=== PATIENT | female | born 1995 | race Caucasian/White ===

== ENCOUNTER 2017-05-06 12:40 | Emergency (ER) | payer OTHER ==
[~2017-05-06] VITALS: Wt 100.7 kg
[~2017-05-06 12:40] MED LIST: BUTA1CAP38 PO; CEPH-443 PO; IBUP-1542 PO; ONDA8TAB14 PO
--- NOTE | 2017-05-06 13:22 | ERD ---
ER Documentation Chief Complaint Date/Time DATE: 05/06/17 TIME: 13:20 Chief Complaint SMALL CUTS ON 3RD AND 4TH DIGIT ON RIGHT HAND HPI 22-year-old female who is right-hand dominant comes in with superficial lacerations to her third and fourth digits from a trip and fall into a glass mirror this afternoon. She has localized pain, achy, worse with movement. She does not have any foreign body sensation. Patient does not recall her last tetanus shot. ROS All systems reviewed and are negative except as per history of present illness. Medications Home Meds Active Scripts Cephalexin* (Keflex*) 500 Mg Capsule, 500 MG PO QID for 5 Days, CAP Prov:LORENA COHEN MD 11/14/16 Ibuprofen* (Motrin*) 600 Mg Tab, 600 MG PO Q6, #20 TAB Prov:LORENA COHEN MD 11/14/16 Ondansetron (Ondansetron Odt) 8 Mg Tab.rapdis, 8 MG PO Q6H Y for NAUSEA AND/OR VOMITING, #10 TAB Prov:LORENA COHEN MD 11/14/16 Buwrpqfyhl-Tyltyxtlrgohj-Cgbttuqz* (Fioricet*) 50-300-40 Mg Capsule, 1 CAP PO Q4H Y for HEADACHE, #16 CAP Prov:LORENA COHEN MD 11/14/16 Allergies Allergies: Coded Allergies: No Known Allergy (Unverified , 11/14/16) PMhx/Soc Hx Alcohol Use: No Hx Tobacco Use: No Physical Exam Vitals Vital Signs Date Time Temp Pulse Resp B/P Pulse Ox O2 Delivery O2 Flow Rate FiO2 05/06/17 12:49 98.7 84 18 135/95 99 Physical Exam General: Well-developed, well-nourished. The patient appears in no acute distress. HEENT: Head is normocephalic, atraumatic. No scleral icterus. Neck: Supple. Nontender. Lungs: Clear to auscultation. Normal air movement. Heart: Regular rate and rhythm. S1 and S2 are normal. No murmurs, gallops, or rubs. Abdomen: Nondistended. Extremities: Superficial lacerations over the PIP joints dorsally at the third and fourth digits of the right hand, both 1 cm. There is no foreign body, no active bleeding. She has full range of motion at the DIP, PIP and MCP joints of these digits. Capillary refill less than 2 seconds and sensation distally intact. Neurologic: Alert and oriented 3. No focal deficits. Normal speech and gait. Skin: Normal turgor. No rash or lesions. Results 24 hrs Current Medications Medications (Trade) Dose Ordered Sig/Neris Route PRN Reason Start Time Stop Time Status Last Admin Dose Admin Diphtheria/ Tetanus/Acell Pertussis (Adacel) 0.5 ml ONCE ONCE IM 05/06/17 13:30 05/06/17 13:31 DC 05/06/17 13:37 Acetaminophen/ Hydrocodone Bitart (Hurley (5/325)) 1 tab ONCE ONCE PO 05/06/17 13:30 05/06/17 13:31 DC 05/06/17 13:32 Procedures/MDM ED course: Wound was irrigated copiously with normal saline. Laceration Repair by me via Dermabond: Patient was verbally consented Location: Tendon/Joint/Nerves: No injury Foreign body: None detected after copious irrigation and exploration Post Closure Length: 1 cm, 1cm Patient's bleeding was easily controlled in the department and there is no indication of anemia. No evidence of compartment syndrome, neurologic injury, vascular injury, open joint, tendon laceration, or foreign body. Patient is appropriate for outpatient follow up. 48 hour wound check. Scar minimization instructions given. Patient's right third and fourth digits were splinted with pedrito tape. 22 yo female comes in with superficial lacerations, to her right third and fourth digits. She had an x-ray done of the right hand, there is no evidence of fracture, no foreign body seen. No evidence of tendon injury. Lacerations are superficial, repaired with Dermabond. Departure Diagnosis: Primary Impression: Laceration Condition: JOSEF Browne PA-C May 06, 2017 13:22
[2017-05-06] MEDS ORDERED: HYDROCODONE/APAP (5/325) TAB PO ONE (13:30)
[2017-05-06] MEDS ORDERED: DIPHTH/TET/ACEL PERTUSS (ADULT) 0.5 ML VIAL IM ONE (13:30)
--- NOTE | 2017-05-06 13:55 | RADRPT ---
PROCEDURE: XR Hand. CLINICAL INDICATION: Pain TECHNIQUE: AP oblique and lateral views of the right hand were obtained. COMPARISON: No prior studies are available for comparison. FINDINGS: There is normal mineralization. No acute fracture or dislocation is seen. There are no significant degenerative changes. There is no significant soft tissue swelling. There is no radiopaque foreign body. RPTAT: AA IMPRESSION: Normal x-ray of the right hand x-ray . .Kalin Bustamante MD, MD Date Time Electronically viewed and signed by .Kalin Bustamante MD, on 05/06/2017 13:55 .S/
[2017-05-06 14:45] VITALS: BP_SYST 78; PULSE 78; RESP 18; TEMP 98.5
== END 2017-05-06 14:45 | disposition home or self-care (01) ==
LOC: FTE 12:40
DX: S61.212A Laceration without foreign body of right middle finger without damage to nail, initial encounter (principal); S61.214A Laceration without foreign body of right ring finger without damage to nail, initial encounter; W18.02XA Striking against glass with subsequent fall, initial encounter; Y92.9 Unspecified place or not applicable; Z23 Encounter for immunization
CPT/HCPCS: 12001; 73130; 90471; 90715; Z7502; Z7610

== ENCOUNTER 2017-05-08 20:42 | Emergency (ER) | payer OTHER ==
[~2017-05-08] VITALS: Wt 99.5 kg
--- NOTE | 2017-05-08 23:15 | ERD ---
ER Documentation Chief Complaint Date/Time DATE: 05/08/17 TIME: 23:10 Chief Complaint wound check HPI 22-year-old female presented today for wound check after a superficial laceration of her right hand. Patient sustained laceration over the dorsal aspect of the PIP joints of the right third and fourth fingers. She has received Dermabond skin adhesive for laceration repair 2 days ago. Patient states that the laceration had broke open, and is giving her more pain right now. Denies fever or chills. ROS All systems reviewed and are negative except as per history of present illness. Medications Home Meds Active Scripts Cephalexin* (Keflex*) 500 Mg Capsule, 500 MG PO QID for 5 Days, CAP Prov:LORENA COHEN MD 11/14/16 Ibuprofen* (Motrin*) 600 Mg Tab, 600 MG PO Q6, #20 TAB Prov:LORENA COHEN MD 11/14/16 Ondansetron (Ondansetron Odt) 8 Mg Tab.rapdis, 8 MG PO Q6H Y for NAUSEA AND/OR VOMITING, #10 TAB Prov:LORENA COHEN MD 11/14/16 Xokpwtifia-Hwbahizrxszxx-Lqszqtud* (Fioricet*) 50-300-40 Mg Capsule, 1 CAP PO Q4H Y for HEADACHE, #16 CAP Prov:LORENA COHEN MD 11/14/16 Allergies Allergies: Coded Allergies: No Known Allergy (Unverified , 05/08/17) PMhx/Soc Medical and Surgical Hx: pt denies Medical Hx, pt denies Surgical Hx Hx Alcohol Use: No Hx Substance Use: Yes (marjuanna) Hx Tobacco Use: No Smoking Status: Current every day smoker Physical Exam Vitals Vital Signs Date Time Temp Pulse Resp B/P Pulse Ox O2 Delivery O2 Flow Rate FiO2 05/08/17 21:33 99.0 109 20 122/79 100 Physical Exam General: Well-developed, well-nourished, conscious and coherent, in no distress Skin: Warm and dry without rash, good texture and turgor. Superficial lacerations noted over the PIP joints of the right third and fourth fingers, with slight wound dehiscence. No active bleeding. No periwound or erythema. No drainage. Head: Normocephalic without evidence of trauma Eyes: Sclera and conjunctivae normal; pupils equal, round, and reactive to light; extraocular movements are intact Chest: Normal AP diameter. Good expansion without retractions. Nontender. Lungs are clear to auscultate bilaterally with good tidal volume Heart: Regular rate and rhythm. No murmur, rub, or gallops heard Extremities: Full range of motion. Good strength bilaterally. No clubbing, cyanosis, or edema. Peripheral pulses are intact. Sensation intact Neuro: Alert and oriented 4, GCS 15. Cranial nerves grossly intact. Motor and sensory exams nonfocal. Moves all extremities. Speech clear. Gait normal Procedures/MDM Patient wound is cleansed. Steri-Strip applied across the wound to ensure closure. No sign of wound infection. The area of injury was immobilized with pedrito tape and middle finger splint. Patient was noted to be comfortable and neurovascularly intact both before and after the immobilization. Patient appears well, stable for discharge and outpatient management. Medical decision making shared with patient and family. Education provided to patient and family. Patient and family expressed understanding of the plan. Medications on discharge: None. Follow-up: Primary care provider in 2-3 days or return to ED if worse. Departure Diagnosis: Primary Impression: Encounter for wound re-check Condition: Good Patient Instructions: Wound Check, Lac F/U (No Infection) Referrals: DOCTOR,NOT ON STAFF (PCP) [facility] YOU HAVE RECEIVED A MEDICAL SCREENING EXAM AND THE RESULTS INDICATE THAT YOU DO NOT HAVE A CONDITION THAT REQUIRES URGENT TREATMENT IN THE EMERGENCY DEPARTMENT. FURTHER EVALUATION AND TREATMENT OF YOUR CONDITION CAN WAIT UNTIL YOU ARE SEEN IN YOUR DOCTORS OFFICE WITHIN THE NEXT 1-2 DAYS. IT IS YOUR RESPONSIBILITY TO MAKE AN APPOINTMENT FOR FOLOW-UP CARE. IF YOU HAVE A PRIMARY DOCTOR --you should call your primary doctor and schedule an appointment IF YOU DO NOT HAVE A PRIMARY DOCTOR YOU CAN CALL OUR PHYSICIAN REFERRAL HOTLINE AT IF YOU CAN NOT AFFORD TO SEE A PHYSICIAN YOU CAN CHOSE FROM THE FOLLOWING [facility] [address] [facility] [address] [facility] [address] [facility] [address] [facility] [address] [facility] [facility] [address] EDGARDO TAYLOR NP May 08, 2017 23:15
== END 2017-05-08 22:53 | disposition home or self-care (01) ==
LOC: FTE 20:42
DX: Z48.01 Encounter for change or removal of surgical wound dressing (principal); R40.2412 Glasgow coma scale score 13-15, at arrival to emergency department; F17.210 Nicotine dependence, cigarettes, uncomplicated
CPT/HCPCS: 99281